=== PATIENT | male | born 1975 | race Hispanic/Latino ===

== ENCOUNTER 2022-09-26 10:49 | Emergency (ER) | payer OTHER, MEDICARE ==
[~2022-09-26] VITALS: Ht 167.6 cm; Wt 74.8 kg
[2022-09-26] MEDS ORDERED: KETOROLAC 15MG/ML VIAL (15MG/ML) IM ONE (11:30)
[2022-09-26] MEDS ORDERED: LIDOCAINE 5% TOPICAL PATCH TP ONE (11:30)
[2022-09-26 12:07] VITALS: BP 159/89
== END 2022-09-26 12:09 | disposition home or self-care (01) ==
LOC: EDH 10:49
DX: G89.29 Other chronic pain (principal); M25.511 Pain in right shoulder
CPT/HCPCS: 99283; 96372; J1885

== ENCOUNTER → 2022-10-01 | Outpatient (CLI) | payer OTHER, MEDICARE ==
[2022-10-01 14:24] LABS: CREATININE 0.8 mg/dL (0.5-1.5)
== END | disposition home or self-care (01) ==
LOC: LAB 13:39
PROVIDERS: ATTEND Neuromusculoskeletal Medicine & OMM
DX: M79.2 Neuralgia and neuritis, unspecified (principal)
CPT/HCPCS: 36415; 82565; 84520